=== PATIENT | female | born 2000 | race African-American/Black ===

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

== ENCOUNTER 2019-02-06 02:14 | Emergency (ER) | payer OTHER ==
[2019-02-06] MEDS ORDERED: Dexamethasone 4 mg/ml Vial ONE (02:42)
[2019-02-06] MEDS ORDERED: hydrOXYzine 25 MG TAB ONE (02:43)
== END 2019-02-06 02:57 | disposition home or self-care (01) ==
LOC: ERS 02:14
DX: T78.40XA Allergy, unspecified, initial encounter (principal); F90.9 Attention-deficit hyperactivity disorder, unspecified type; J45.909 Unspecified asthma, uncomplicated
CPT/HCPCS: 99283; J1100

== ENCOUNTER 2019-03-02 17:22 | Emergency (ER) | payer OTHER ==
[2019-03-02] MEDS ORDERED: Ondansetron ODT 4 MG TAB ONE (17:53)
[2019-03-02 18:29] LABS: Pregnancy Test - Urine (BHCG) Negative (Negative); Pregu Control Background? CLEAR/WHITE (CLR/WHITE); Pregu Control Bar Appear? YES (CONTROL BAR); Specific Gravity 1.025 (1.002-1.036)
== END 2019-03-02 18:30 | disposition home or self-care (01) ==
LOC: ERS 17:22
DX: R11.2 Nausea with vomiting, unspecified (principal); E11.9 Type 2 diabetes mellitus without complications; J45.909 Unspecified asthma, uncomplicated; F90.9 Attention-deficit hyperactivity disorder, unspecified type; Z79.84 Long term (current) use of oral hypoglycemic drugs
CPT/HCPCS: 36416; 81025; 99284; Q0162

== ENCOUNTER 2019-04-18 08:19 | Emergency (ER) | payer OTHER ==
[2019-04-20 22:07] LABS: Chlamydia by PCR Not Detected (NotDetected); GC by PCR Not Detected (NotDetected)
== END 2019-04-18 09:06 | disposition home or self-care (01) ==
LOC: ERS 08:19
DX: B37.3 Candidiasis of vulva and vagina (principal); J45.909 Unspecified asthma, uncomplicated; F90.9 Attention-deficit hyperactivity disorder, unspecified type
CPT/HCPCS: 87480; 87491; 87510; 87591; 87660; 99283

== ENCOUNTER 2019-07-30 08:21 | Emergency (ER) | payer OTHER ==
[2019-07-30] MEDS ORDERED: Dexamethasone 4 mg/ml Vial ONE (08:49)
== END 2019-07-30 09:00 | disposition home or self-care (01) ==
LOC: ERS 08:21
DX: J02.9 Acute pharyngitis, unspecified (principal); J45.909 Unspecified asthma, uncomplicated; R73.03 Prediabetes
CPT/HCPCS: 87081; 87430; 99283; J1100

== ENCOUNTER 2019-08-20 08:47 | Outpatient (CLI) | payer OTHER | END 2019-08-20 08:48 | disposition home or self-care (01) | LOC: DTY/OP 08:47 | PROVIDERS: ATTEND Family Medicine | DX: Z68.34 Body mass index [BMI] 34.0-34.9, adult (principal) | CPT/HCPCS: 97802 ==

== ENCOUNTER 2019-08-22 10:03 | Emergency (ER) | payer OTHER ==
[2019-08-22 10:31] LABS: Bilirubin Negative (Negative); Blood, Urine Negative (Negative); Clarity Clear (Clear); Glucose, Urine (Dipstick) Normal (Negative); Leukocyte Negative Leu/uL (Negative); Nitrite Negative (Negative); Protein, Urine (Dipstick) Negative (Neg-Trace); Urobilinogen Normal mg/dL (Less than 2)
[2019-08-22 11:12] LABS: Pregnancy Test - Urine (BHCG) Negative (Negative); Pregu Control Background? CLEAR/WHITE (CLR/WHITE); Pregu Control Bar Appear? YES (CONTROL BAR); Specific Gravity 1.022 (1.002-1.036)
[2019-08-22] MEDS ORDERED: Ondansetron ODT 4 MG TAB ONE (11:21)
== END 2019-08-22 12:02 | disposition home or self-care (01) ==
LOC: ERS 10:03
DX: R11.2 Nausea with vomiting, unspecified (principal); R19.7 Diarrhea, unspecified; J45.909 Unspecified asthma, uncomplicated; R73.03 Prediabetes; Z79.84 Long term (current) use of oral hypoglycemic drugs
CPT/HCPCS: 36416; 81003; 81025; 99284; Q0162

== ENCOUNTER 2019-09-06 20:15 | Emergency (ER) | payer OTHER ==
--- NOTE | 2019-09-06 20:56 | RAD ---
EXAM: Chest Two Views 09/06/2019 8:54 PM HISTORY: Dry cough for 2 weeks COMPARISON: April 02, 2007 FINDINGS: Lungs: No acute airspace consolidation. Heart: Normal in size and contour. Pulmonary vessels: Normal. Costophrenic angles: Clear. Pneumothorax: None. Osseous structures:Intact. Additional findings: None. IMPRESSION: No significant acute intrathoracic disease.
== END 2019-09-06 21:19 | disposition home or self-care (01) ==
LOC: ERS 20:15
DX: J20.9 Acute bronchitis, unspecified (principal); R73.03 Prediabetes; J45.909 Unspecified asthma, uncomplicated; Z79.84 Long term (current) use of oral hypoglycemic drugs
CPT/HCPCS: 71046

== ENCOUNTER 2020-01-04 19:28 | Emergency (ER) | payer OTHER ==
[2020-01-05 18:39] LABS: SARS-CoV-2 MS2 Positive; SARS-CoV-2 N Gene Negative; SARS-CoV-2 S Gene Negative; SARS-CoV-2 orf1ab Negative
== END 2020-01-04 22:00 | disposition home or self-care (01) ==
LOC: ERS 19:28
DX: O98.511 Other viral diseases complicating pregnancy, first trimester (principal); Z20.828 Contact with and (suspected) exposure to other viral communicable diseases; O99.511 Diseases of the respiratory system complicating pregnancy, first trimester; J45.909 Unspecified asthma, uncomplicated; O99.89 Other specified diseases and conditions complicating pregnancy, childbirth and the puerperium; R73.03 Prediabetes; Z79.84 Long term (current) use of oral hypoglycemic drugs
CPT/HCPCS: 87081; 87430; 87635; 99283; U0003

== ENCOUNTER 2020-07-12 19:47 | Emergency (ER) | payer OTHER ==
[2020-07-12 21:22] LABS: Bacteria/HPF None Seen HPF (None Seen); Bilirubin Negative (Negative); Blood, Urine Negative (Negative); Clarity Extra Turbid (Clear); Glucose, Urine (Dipstick) Normal (Negative); Ketone, Urine Negative (Negative); Leukocyte 250 Leu/uL (Negative); Nitrite Negative (Negative); Protein, Urine (Dipstick) Negative (Neg-Trace); RBC/HPF 0-3 HPF (0-3); Specific Gravity, Urine 1.022 (1.002-1.036); Squamous Epithelial 0-3 HPF (0-3); Urobilinogen Normal mg/dL (Less than 2)
[2020-07-12] MEDS ORDERED: Azithromycin 250 MG TAB ONE (21:24)
[2020-07-12] MEDS ORDERED: Fluconazole 100 MG TAB PO SCH (21:30)
[2020-07-14 20:37] LABS: Chlamydia by PCR Not Detected (NotDetected); GC by PCR Not Detected (NotDetected)
== END 2020-07-12 21:32 | disposition home or self-care (01) ==
LOC: ERS 19:47
DX: N89.8 Other specified noninflammatory disorders of vagina (principal); E11.9 Type 2 diabetes mellitus without complications; J45.909 Unspecified asthma, uncomplicated; Z79.84 Long term (current) use of oral hypoglycemic drugs
CPT/HCPCS: 81003; 81015; 87480; 87491; 87510; 87591; 87660; 99281

== ENCOUNTER 2021-01-09 18:07 | Emergency (ER) | payer OTHER | END 2021-01-09 19:30 | disposition home or self-care (01) | LOC: ERS 18:07 | DX: M25.571 Pain in right ankle and joints of right foot (principal) | CPT/HCPCS: 99281 ==

== ENCOUNTER 2021-11-04 00:27 | Emergency (ER) | payer OTHER | END 2021-11-04 01:40 | disposition home or self-care (01) | LOC: ERS 00:27 | DX: H65.92 Unspecified nonsuppurative otitis media, left ear (principal); R73.03 Prediabetes; F17.210 Nicotine dependence, cigarettes, uncomplicated; Z79.84 Long term (current) use of oral hypoglycemic drugs | CPT/HCPCS: 99283 ==

== ENCOUNTER 2022-11-12 22:34 | Emergency (ER) | payer OTHER ==
[2022-11-12 23:00] LABS: #Eosinphils 0.1 thou/uL (0.0-0.7); #Lymphocytes 3.1 thou/uL (1.20-3.40); #Monocytes 0.6 thou/uL (0.11-0.59); #Neutrophils 5.8 thou/uL (1.40-6.50); %Basophils 0.5 % (0.0-1.0); %Eosinophils 0.9 % (0.0-10.0); %Monocytes 5.8 % (0.0-10.0); %Neutrophils 60.8 % (42.0-75.0); Hemoglobin 11.9 g/dL (12.0-16.0); Mean Corpuscular HGB CONC 32.8 g/dL (32.0-36.0); Mean Corpuscular Hemoglobin 29.3 pg (27.0-31.0); Mean Corpuscular Volume 89.4 fl (78.0-98.0); Mean Platelet Volume 6.9 fL (7.4-10.4); Platelet Count 381 10x3/uL (130-400); RBC Distribution Width 13.4 % (11.5-14.5); Red Blood Cell (RBC) Count 4.06 mill/uL (4.20-5.40); White Blood Cell (WBC) Count 9.6 10x3/uL (4.8-10.8)
[2022-11-12 23:04] LABS: BHCG - Serum Negative (NEGATIVE); Pregs Control Background? CLEAR/WHITE (CLR/WHITE); Pregs Control Bar Appear? YES (CONTROL BAR)
[2022-11-12 23:20] LABS: ALT (SGPT) 26 U/L (8-55); AST (SGOT) 21 U/L (5-34); Alkaline Phosphatase 40 U/L (40-110); Anion Gap 14 mmol/L (10-20); BUN (Urea Nitrogen) 12 mg/dL (7.0-18.7); Bilirubin, Total 0.2 mg/dL (0.2-1.2); Calc. Creatinine Clearance 0 mL/min (70-130); Calcium 9.3 mg/dL (7.8-10.44); Carbon Dioxide 24 mmol/L (22-29); Chloride 106 mmol/L (98-107); Estimated GFR 102; Glucose 88 mg/dL (70-105); Lipase 12 U/L (8-78); Potassium 4.6 mmol/L (3.5-5.1); Sodium 139 mmol/L (136-145)
[2022-11-13] MEDS ORDERED: Acetaminophen 500 MG TAB ONE (00:16)
[2022-11-13] MEDS ORDERED: Ibuprofen 200 MG TAB ONE (00:16)
[2022-11-13 00:24] LABS: Bilirubin Negative (Negative); Blood, Urine Negative (Negative); Clarity Clear (Clear); Glucose, Urine (Dipstick) Normal (Negative); Ketone, Urine 20 mg/dL (Negative); Leukocyte Negative Leu/uL (Negative); Nitrite Negative (Negative); Protein, Urine (Dipstick) 20 mg/dL (Neg-Trace); Specific Gravity, Urine 1.034 (1.002-1.036); Urobilinogen Normal mg/dL (Less than 2); pH, Urine 6.5 (5.0-9.0)
== END 2022-11-13 00:52 | disposition home or self-care (01) ==
LOC: ERS 22:34
DX: R10.9 Unspecified abdominal pain (principal); E11.9 Type 2 diabetes mellitus without complications; F17.210 Nicotine dependence, cigarettes, uncomplicated
CPT/HCPCS: 36415; 80053; 81003; 83690; 84703; 85025; 99284